=== PATIENT | male | born 1965 | race Caucasian/White ===

== ENCOUNTER 2019-11-05 00:36 | Emergency (ER) | payer SELFPAY ==
[2019-11-05 00:36] VITALS: BP 165/98; PULSE 99; RESP 16; TEMP 37.2; O2SAT 96; BMI 26.4
--- NOTE | 2019-11-05 00:38 | ED_ITS ---
Entered by Keely Shaw, acting as scribe for Tova Henry MD HPI - Seizure General: Chief Complaint: Seizure Stated Complaint: seizure Time Seen by Provider: 11/05/19 00:37 Source: EMS Mode of arrival: EMS Limitations: no limitations History of Present Illness: HPI Narrative: 64 yo m came to the er by [facility] for a seizure. Onset was today. Pt states that this is the second time that he has had a seizure today. Pt states that he fell the fisrst time and hit his head above his right eyebrow. Pt bit his lip this time when he had this last seizure. Patient denies any headache. Denies any worsening improving factors. 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) Description of Episode: other (unsure of loc) -: second(s) Witnessed: No Trauma: Yes Seizure History: Yes Place: Home Possible Precipitating Event: head injury (bit lip) Associated symptoms: Reports no associated symptoms; Deny chest pain, chills or fever(s) Review of Systems General: Reports: other (negative unless marked) Const: Denies: fever, chills, body aches or change in appetite Eyes: Denies: blurry vision or eye discomfort ENMT: Denies: throat pain or dental pain Card: Denies: chest pain Resp: Denies: shortness of breath GI: Denies: abdominal pain, nausea, vomiting or diarrhea : Denies: painful urination Musc: Denies: neck pain or back pain Skin/Breast: Denies: rash Neuro: Reports: seizure-like activity; Denies: headache Psych: Denies: depression Kenan/Lymph: Denies: easy bruising All/Imm: Denies: hives PFSH ED PFSH: Social History Smoking and tobacco status: current every day smoker Physical Exam Const: COMMON NORMALS: no apparent distress, oriented x3 and healthy appearing HENMT: COMMON NORMALS: normocephalic and head/scalp atraumatic HEAD & SCALP: normocephalic and atraumatic Eye: COMMON NORMALS: PERRL and EOMs intact bilaterally PUPIL: Yes PERRL Neck/C-Spine: COMMON NORMALS: full ROM and supple Chest: COMMONS NORMALS: inspection of chest normal and palpation of chest normal Resp: COMMON NORMALS: normal respiratory effort, no retractions, no use of accessory muscles and clear to auscultation bilaterally AUSCULTATION: clear to auscultation bilaterally Cardio: COMMON NORMALS: regular rate, regular rhythm and no murmurs RATE: regular rate RHYTHM: regular rhythm GI: COMMON NORMALS: normal to inspection, nondistended, normoactive bowel sounds, soft to palpation, non-tender and no masses PALPATION: Yes soft Extremity: COMMON NORMALS: normal to inspection and full ROM Neuro: COMMON NORMALS: oriented x3, moves all extremities and no focal motor deficits Psych: COMMON NORMALS: mental status grossly normal, thought process normal and cooperative THOUGHT PROCESS: normal thought process Skin: COMMON NORMALS: no rashes or lesions noted and no wounds GENERAL SKIN EXAM: no rashes or lesions noted Course Vital Signs: Vital signs: Vital Signs Temperature 99.0 F 11/05/19 00:36 Pulse Rate 84 11/05/19 03:30 Respiratory Rate 16 11/05/19 03:30 Blood Pressure 127/84 11/05/19 03:30 Pulse Oximetry 96 11/05/19 00:36 MDM - Seizure MDM Narrative: Medical decision making narrative: Patient presents here with seizure-like activity. Patient is a drinker and could been a withdrawal seizure. He had 2 today and will start him on Keppra. Patient feels improved I did offer him admission and he refused. Patient stable for discharge and is to follow-up with his primary care doctor and return if worsening. Lab Data: Labs: Lab Results 11/05/19 11/05/19 11/05/19 Range/Units 00:42 00:42 01:06 WBC 4.9 (4.0-10.0) 10^3/ uL RBC 3.94 L (4.1-5.3) 10^6/u L Hgb 12.6 (11.7-16.6) g/dL Hct 37.4 L (42.0-52.0) % MCV 94.9 H (80-94) fL MCH 32.0 (28.0-34.0) pg MCHC 33.7 (30.0-36.0) g/dL RDW 14.1 (12.1-15.1) % Plt Count 44 L (130-400) 10^3/c mm MPV 12.9 H (7.4-10.4) fL Neut % (Auto) 68.2 % Lymph % (Auto) 20.4 % Ida % (Auto) 8.8 % Eos % (Auto) 0.6 % Baso % (Auto) 1.2 % Neut # (Auto) 3.3 (1.8-7.7) 10^3/u L Lymph # (Auto) 1.0 (0.8-4.8) 10^3/u L Ida # (Auto) 0.4 (0.2-0.9) 10^3/u L Eos # (Auto) 0.0 (0.0-0.8) 10^3/u L Baso # (Auto) 0.1 (0.0-0.1) 10^3/u L Nucleated RBC % (a uto) 0 % Nucleated RBCs # 0.0 /100WBC Sodium 132 L (136-145) mmol/L Potassium 3.7 (3.5-5.1) mmol/L Chloride 92 L (98-107) mmol/L Carbon Dioxide 26 (22-29) mmol/L Anion Gap 17.7 (5-19) BUN 10 (8-23) mg/dL Creatinine 0.8 (0.7-1.2) mg/dL GFR Calculation 97.0 (90-130) mL/min Glucose 116 H (65-115) mg/dL POC Glucose 116 (70-110) mg/dL Calcium 9.2 (8.5-10.5) mg/dL Total Bilirubin 1.7 H (0.15-1.2) mg/dL AST 335 H (0-40) U/L ALT 146 H (0-41) U/L Alkaline Phosphata se 97 (40-130) IU/L Total Protein 8.8 H (6.6-8.7) g/dL Albumin 3.5 (3.5-5.2) g/dL Globulin 5.3 H (1.3-4.6) g/dL Ethyl Alcohol < 10 (0-10) mg/dL Imaging Data^: CT Head: Radiologist's impression: Ordering Provider/Ordering MD: Tova Henry MD Date of Service: 11/05/19 Procedure(s): CT head wo con* [id number] Accession Number(s): [id number] Report Number: [id number] PROCEDURE INFORMATION: Exam: CT Head Without Contrast Exam date and time: 11/05/2019 12:42 AM Age: 64 years old Clinical indication: Other: Seizure TECHNIQUE: Imaging protocol: Computed tomography of the head without contrast. Total DLP: 897.44 mGy-cm Radiation optimization: All CT scans at this facility use at least one of these dose optimization techniques: automated exposure control; mA and/or kV adjustment per patient size (includes targeted exams where dose is matched to clinical indication); or iterative reconstruction. COMPARISON: No relevant prior studies available. FINDINGS: Brain: No acute intracranial hemorrhage or mass effect. No definite acute infarct by CT. MRI could be more sensitive/specific for detection, as clinically directed. Ventricles: Ventricle size is normal for age. Bones/joints: No definite acute skull fracture. Sinuses: Moderate mucosal thickening in the maxillary sinuses. Included paranasal sinuses otherwise appears essentially clear. Mastoid air cells: No significant acute finding. CT/CT head wo con* [id number] IMPRESSION: 1. No acute intracranial hemorrhage or mass effect. 2. No definite acute infarct by CT, see above. 3. Other findings discussed above. EKG Data^: EKG 1: Attestation: I personally reviewed and interpreted this EKG as follows: EKG interpretation date: 11/05/19 EKG interpretation time: 00:51 Interpretation: nsr hr [address] or t wave abnormalities Discharge Plan Discharge Patient Disposition: Home, Self-Care Clinical Impression: Generalized seizure Condition: Stable Prescriptions: New Keppra 500 mg tablet 500 mg PO Q12H Qty: 60 RF: 0 Discharge Orders: Discharge Order (Routine); Ordered 11/05/19 Ordered By: Tova Henry Discharge Diet: Advance as tolerated Discharge Activity: Resume usual activity Patient Instructions: New-Onset Seizure in Adults (ED) Coding Level of Care Code ED Ore Trimmer for Chg Fwd Exam Comprehensive The documentation recorded by the Colin montes Stephanie Lyn, accurately reflects the service I personally performed and the decisions made by Elaine watson Korby, MD
--- NOTE | 2019-11-05 00:41 | ECG_ITS ---
Measurements Intervals [place] Rate: 78 P: 67 MA: 137 QRS: 43 QRSD: 105 T: 67 QT: 395 QTc: 450 SINUS RHYTHM VOLTAGE CRITERIA FOR LVH MODERATE ST DEPRESSION No previous ECG available for comparison Electronically Signed On 11-05-2019 15:27:28 [employer]EL[employer] by Aspen Cordova M.D. [email or web address]
--- NOTE | 2019-11-05 00:49 | PC.NURSE ---
Seizure precaution pads were also put in place for patient protection.
[2019-11-05 00:50] LABS: Basophils # 0.1 10^3/uL (0.0-0.1); Basophils % 1.2 %; Eosinophils % 0.6 %; Hematocrit 37.4 % (42.0-52.0); Hemoglobin 12.6 g/dL (11.7-16.6); Lymphocytes % 20.4 %; Mean Corpuscular HGB Conc 33.7 g/dL (30.0-36.0); Mean Corpuscular Volume 94.9 fL (80-94); Mean Platelet Volume 12.9 fL (7.4-10.4); Monocytes # 0.4 10^3/uL (0.2-0.9); Monocytes % 8.8 %; Neutrophils # 3.3 10^3/uL (1.8-7.7); Neutrophils % 68.2 %; Nucleated Red Blood Cells % 0 %; Platelet Count 44 10^3/cmm (130-400); Red Blood Count 3.94 10^6/uL (4.1-5.3); Red Cell Distribution Width 14.1 % (12.1-15.1); White Blood Count 4.9 10^3/uL (4.0-10.0)
--- NOTE | 2019-11-05 00:52 | PC.NURSE ---
Received patient to Er via EMS with complaint of possible seizure at home witnessed by his family. Ems states they were called to residence this am but patient refused care. They received another call this evening and patient agreed to come to ER. Patient has a bite on his tongue, but doesn't think he had a seizure. Patient states he last drank alcohol 4 days ago but denies daily drinking. Patient does admit to drinking heavy at times.
[2019-11-05 01:03] LABS: Alanine Aminotransferase 146 U/L (0-41); Albumin Level 3.5 g/dL (3.5-5.2); Alkaline Phosphatase 97 IU/L (40-130); Anion Gap 17.7 (5-19); Aspartate Amino Transferase 335 U/L (0-40); Blood Urea Nitrogen 10 mg/dL (8-23); Calcium 9.2 mg/dL (8.5-10.5); Carbon Dioxide 26 mmol/L (22-29); Chloride 92 mmol/L (98-107); Globulin 5.3 g/dL (1.3-4.6); Glucose 116 mg/dL (65-115); Potassium 3.7 mmol/L (3.5-5.1); Sodium 132 mmol/L (136-145); Total Bilirubin 1.7 mg/dL (0.15-1.2); Total Protein 8.8 g/dL (6.6-8.7)
--- NOTE | 2019-11-05 01:08 | PC.NURSE ---
Patient's blood glucose is 116, both nurse and doctor were notified.
[2019-11-05] MEDS: LORazepam 2 mg/mL INJ 1 mL IVP (01:09)
[2019-11-05] MEDS: sodium chloride 0.9% 1,000 ML 999 ML IV (01:09)
[2019-11-05 01:10] LABS: Glucose Point of Care 116 mg/dL (70-110)
[2019-11-05 01:11] LABS: Alcohol Level < 10 mg/dL (0-10)
[2019-11-05 02:11] VITALS: BP 142/86; PULSE 88; RESP 16
[2019-11-05 03:30] VITALS: BP 127/84; PULSE 84; RESP 16
[2019-11-05 04:00] VITALS: BP 136/87; PULSE 80; RESP 16; O2SAT 97
[2019-11-05 05:00] VITALS: BP 142/88; PULSE 84; RESP 18; O2SAT 96
--- NOTE | 2019-11-05 05:35 | PC.NURSE ---
Attempted to call patients friend again with no answer for a ride home.
--- NOTE | 2019-11-05 05:41 | PC.NURSE ---
Got a hold of Bubba patients friend who will come get patient.
[2019-11-05 06:41] VITALS: BP 108/82; PULSE 82; RESP 16; O2SAT 96
--- NOTE | 2019-11-05 06:55 | PC.NURSE ---
Patient dc'd home in stable condition via wheelchair. Discharge Papers given and explained to patient with all questions asked and answered.
== END 2019-11-05 06:55 | disposition home or self-care (01) ==
PROVIDERS: Emergency Provider Emergency Medicine
DX: R56.9 Unspecified convulsions (principal); F17.210 Nicotine dependence, cigarettes, uncomplicated
CPT/HCPCS: 12345; 36416; 70450; 80053; 80307; 82962; 85025; 93005; 96365; 96366; 96374; 96375; 99284; 99285; J1953; J2060; J7030

== ENCOUNTER 2019-11-16 13:01 | Outpatient (CLI) | payer SELFPAY ==
--- NOTE | 2019-11-16 | CT_ITS ---
WS: [id number] CT LUMBAR SPINE TECHNIQUE: Noncontrast CT of the lumbar spine with coronal and sagittal reformatted images. CLINICAL INFORMATION: ABNORMAL FINDINGS ON DIAGNOSTIC IMAGING COMPARISON: None. DLP: 1977.[address] scans at [facility] use at least one of these dose optimization techniques: automat ed exposure control; mA and/or kV adjustment per patient size (includes targeted exams where dose is matched to clinical indication); or iterative reconstruction. FINDINGS: Mild lumbar curve convex left. No acute compression fractures. Trace retrolisthesis L1 on L2 and L2-L 3 and L3 on L4. Anterior hypertrophic changes. Vacuum disc phenomenon L1-2. L1-L2: Slight retrolisthesis with disc osteophyte ridging and slight narrowing of the left subarticul ar recess. Narrowing of the right subarticular recess with moderate facet arthropathy. Mild right and no significant left foraminal narrowing. Mild central canal stenosis. L2-L3: Mild disc bulging with osteophytic ridging. Mild central canal stenosis. Narrowing of the suba rticular recess bilaterally. Mild right and no significant left foraminal narrowing. L3-L4: Central disc osteophyte protrusion with moderate central canal stenosis. Mild bilateral forami nal narrowing. Moderate facet arthropathy with ligamentum flavum hypertrophy. L4-L5: Mild annular bulging with slight effacement of ventral thecal sac. Moderate facet arthropathy. Right hemilaminectomy. Spinal canal and foramen are patent. L5-S1: Advanced asymmetric left facet arthropathy. Mild to moderate left and no significant right for aminal narrowing. Left facet arthropathy impinges the traversing left S1 nerve root. Visualized pelvic bony structures: Normal. Paravertebral soft tissues: Normal. CT/CT lumbar spine wo con* [id number] IMPRESSION: 1. Mild lumbar curve convex left. 2. No acute compression fractures. 3. Moderate central canal stenosis L3-4 due to disc bulging with facet arthrop athy and ligament flavum hypertrophy. 4. Asymmetric advanced left facet arthropathy L5-S1 impinges the traversing le ft S1 nerve root. Recommend correlation left S1 nerve root symptoms. 5. Mild central canal stenosis L1-L2 and L2-L3 due to disc osteophyte complexe s. 6. Chronic tiny calcified left pericentral disc protrusion L1-2 with narrowing of the left subarticular recess. 7. Mild to moderate foraminal narrowing worse at right L2-3. 8. Moderate to advanced facet arthropathy L3-L5. This is worse at left L5-S1.
--- NOTE | 2019-11-16 | CT_ITS ---
WS: [id number] CT CERVICAL SPINE TECHNIQUE: Noncontrast CT of the cervical spine with coronal and sagittal reformatted images. CLINICAL INFORMATION: ABNORMAL FINDINGS ON DIAGNOSTIC IMAGING COMPARISON: None. DLP: 1566.[address] scans at [facility] use at least one of these dose optimization techniques: automat ed exposure control; mA and/or kV adjustment per patient size (includes targeted exams where dose is matched to clinical indication); or iterative reconstruction. FINDINGS: Mild cervical curve convex left. Moderate spondylitic changes. Bony Ankylosis across the C6-7 disc sp aces. C2-C3: Mild left and no significant right foraminal narrowing. Spinal canal is patent. C3-C4: Disc osteophytic ridging. Moderate left and mild right bony foraminal narrowing. Mild facet ar thropathy. Mild central canal stenosis. Disc osteophyte complex with a right pericentral disc osteoph yte protrusion. Moderate central canal stenosis. Severe left and mild to moderate right bony foramina l narrowing. Mild facet arthropathy. C4-C5: Disc osteophyte complex with endplate ridging. Moderate central canal stenosis. Severe left an d moderate right bony foraminal narrowing. Moderate facet arthropathy. Ossification posterior longitu dinal ligament. C5-C6: Disc osteophyte complex with endplate ridging. Mild to moderate central canal stenosis. Modera te bilateral bony foraminal narrowing. Mild right and no significant left foraminal narrowing. C6-C7: Ankylosis across the C6-7 disc spaces. Disc osteophytic ridging with mild central canal stenos is. Mild to moderate bilateral bony foraminal narrowing. Mild facet arthropathy. C7-T1: Mild right and no significant left foraminal narrowing. Spinal canal is patent. Visualized posterior nasopharynx: Normal. Prevertebral soft tissues: Normal. CT/CT cervical spin wo con* [id number] IMPRESSION: 1. Mild cervical curve. Moderate spondylitic changes cervical spine. 2. Moderate central canal stenosis C4-C5 C5-C6 and C6-C7 worse at C4-C5 and C5 -C6 due to disc osteophyte complexes with central osteophyte protrusions. Ossif ication posterior longitudinal ligament C4-5. 3. Bony ankylosis across the C6-7 disc space. 4. Multilevel moderate to severe bony foraminal narrowing worse at left C4-C5, left C5-C6, and left C6-C7.
== END 2019-11-16 13:02 | disposition home or self-care (01) ==
PROVIDERS: PCP Nurse Practitioner Family; Visit Provider Nurse Practitioner Family
DX: M48.061 Spinal stenosis, lumbar region without neurogenic claudication (principal); M51.26 Other intervertebral disc displacement, lumbar region; R93.89 Abnormal findings on diagnostic imaging of other specified body structures
CPT/HCPCS: 72125; 72131

== ENCOUNTER 2022-07-02 20:10 | Emergency (ER) | payer SELFPAY ==
[2022-07-02] VITALS (13 sets, daily range): BP systolic 84–117; BP diastolic 51–70; PULSE 98–121; RESP 18–30; TEMP 36–36.3; O2SAT 97–100; BMI 23.1
--- NOTE | 2022-07-02 20:20 | XRR_ITS ---
PROCEDURE INFORMATION: Exam: XR Chest Exam date and time: 07/02/2022 8:30 PM Age: 57 years old Clinical indication: Other: Vomiting blood; Additional info: Bleeding TECHNIQUE: Imaging protocol: Radiologic exam of the chest. Views: 1 view. COMPARISON: CT cervical spin wo con* [id number] 11/16/2019 1:21 PM FINDINGS: Lungs: Calcified granulomas in both lungs. Discoid atelectasis in the medial left lung base. No consolidation. Pleural spaces: Unremarkable. No pleural effusion. No pneumothorax. Heart/Mediastinum: Unremarkable. No cardiomegaly. Diaphragm: Elevation of the right diaphragm. Bones/joints: Unremarkable. XR/XR chest 1V portable [id number] IMPRESSION: No acute findings.
--- NOTE | 2022-07-02 20:22 | W.ED.GIBLEED ---
Documented by User: Gustavo Carmen DO 07/02/22 23:01 HPI - GI Bleed General: Chief complaint: Abdominal Pain Stated complaint: vomiting blood x 3 days Time Seen by Provider: 07/02/22 20:20 Source: patient and EMS Mode of arrival: EMS Limitations: no limitations History of Present Illness: This patient presented to our emergency department with a 3-day history of bloody emesis and coffee-ground emesis. He denies any history of similar symptoms occurring previously. He denies any associated bloody stools. He states that he drinks almost on a daily basis but some days he does not drink. He denies any known history of esophageal varices, cirrhosis etc. MD complaint: blood streaked emesis and coffee ground emesis Associated symptoms: Reports vomiting; Denies chills, fever(s), headache(s), rash or syncope Review of Systems Const: Denies: fever(s) or chills Eyes: Denies: change in vision or blurry vision ENMT: Denies: throat pain, odynophagia, bleeding gums, nasal discharge or nasal congestion Card: Denies: chest pain, palpitations, irregular heart rhythm, syncope or pre-syncope Resp: Denies: dyspnea, productive cough or non-productive cough GI: Reports: vomiting and hematemesis; Denies: diarrhea, change in bowel habits, hematochezia or melena : Denies: flank pain, difficulty urinating or dysuria Musc: Denies: neck pain, back pain, extremity pain or extremity swelling Skin/Breast: Denies: rash Neuro: Denies: headache(s), numbness in extremities or weakness in extremities Psych: Denies: anxiety, visual hallucinations, auditory hallucinations or tactile hallucinations [facility] PFSH: Social History (System 11/16/19 @ 13:46 by Mariana See) Smoking and tobacco status: current every day smoker Physical Exam Narrative: EXAM NARRATIVE: Patient is alert and answers questions and asked. He appears to be somewhat uncomfortable; disheveled and dirty Const: COMMON NORMALS: average body habitus and patient oriented x3 GENERAL APPEARANCE: disheveled and appears older than stated age HENMT: COMMON NORMALS: normocephalic, atraumatic, Normal nasal mucous membranes and turbinates present, moist oral mucous membranes and oropharynx normal HEAD & SCALP: normocephalic and atraumatic NOSE: Normal nasal mucous membranes and turbinates present TEETH & GINGIVA: Yes poor dentition Eye: COMMON NORMALS: Equal, round and reactive pupils present, EOMs intact bilaterally and conjunctivae normal CONJUNCTIVA: Yes conjunctivae normal PUPIL: Yes Equal, round and reactive pupils present Neck/C-Spine: COMMON NORMALS: full ROM, supple, no JVD and No carotid bruits Chest: COMMONS NORMALS: normal inspection of the chest and normal palpation of entire chest wall Resp: COMMON NORMALS: normal respiratory effort, No retractions, No use of accessory muscles and clear to auscultation bilaterally AUSCULTATION: clear to auscultation bilaterally Cardio: COMMON NORMALS: no JVD, regular rate, regular rhythm, No murmurs present (Cardio) and Peripheral pulses 2+ throughout RATE: regular rate RHYTHM: regular rhythm PERIPHERAL PULSES: Peripheral pulses 2+ throughout GI: COMMON NORMALS: Normal to inspection, nondistended, normoactive bowel sounds present, Soft to palpation, non-tender, No hepatosplenomegaly present, no masses and no bruits PALPATION: Yes Soft to palpation and Yes No hepatosplenomegaly present : COMMON NORMALS: Yes no CVA tenderness BLADDER/KIDNEY EXAM: Yes no CVA tenderness Back/Pelvis: COMMON NORMALS: no CVA tenderness, thoracic and lumbar spine normal to inspection, no thoracic nor lumbar tenderness and thoraco-lumbar ROM normal Extremity: COMMON NORMALS: normal to inspection, full ROM, capillary refill normal, no calf tenderness and no pedal edema Neuro: COMMON NORMALS: patient oriented x3, moves all extremities, no focal motor deficits and no sensory deficits noted Psych: COMMON NORMALS: denies homicidal ideation and denies suicidal ideation APPEARANCE: Yes unkempt ATTITUDE: Yes Withdrawn affect present Skin: COMMON NORMALS: no rashes or lesions noted, turgor normal, no jaundice and no petechiae GENERAL SKIN EXAM: no rashes or lesions noted and turgor normal Course Reevaluation(s): Reevaluation #1: No more emesis since arrival to the emergency department. Protonix is infusing. Given his initial hemoglobin and his history of repetitive coffee-ground and bloody emesis we will proceed with packed red cell transfusion. Time: 21:28 Reevaluation #2: Case discussed with overnight ER physician Dr. Henry pending additional imaging and disposition based upon Dr. Love and Dr. Roque commendation. Time: 22:59 Consultations: Consultation #1: Discussed with hospitalist who requested I contact GI general surgery on-call for consult. Time: 22:05 Consultation #2: Discussed with Dr. Love who recommended additional imaging to evaluate the lower tract and/or liver etc. Vital Signs: Vital signs: Vital Signs Temperature 97.0 F L 07/02/22 23:30 Pulse Rate 100 07/02/22 23:30 Respiratory Rate 19 H 07/02/22 23:30 Blood Pressure 100/62 07/02/22 23:30 Pulse Oximetry 99 07/02/22 23:30 Oxygen Delivery Me thod 07/02/22 23:30 MDM - GI Bleed Medical Decision Making Patient was a regular almost daily user of alcohol presents with a 3-day history of bloody emesis and coffee-ground emesis. Work-up revealed a hemoglobin of 7.5 with significant transaminitis, hyperbilirubinemia etc. We have initiated blood transfusions and proton pump inhibitor treatment and we will proceed with additional imaging to evaluate his biliary tree and/or other abdominal pathology. Differential Diagnosis Likely Upper gastrointestinal hemorrhage Medical Records I reviewed the patient's medical records. Lab Data I reviewed the patient's lab results. : 07/02/22 20:08 07/02/22 20:08 Radiology Impressions Chest X-Ray 07/02/22 20:20 IMPRESSION: No acute findings. Abdomen Ultrasound 07/02/22 22:22 IMPRESSION: 1. Cirrhotic appearing liver with hepatopetal flow in the main portal vein. 2. Moderate ascites. 3. Sludge in a partially contracted gallbladder with wall thickening. This is most likely related to the patient's liver disease and is unlikely to represent cholecystitis. Laboratory Results WBC 14.9 10^3/uL (4.0-10.0) H 07/02/22 20:08 RBC 2.26 10^6/uL (4.1-5.3) L 07/02/22 20:08 Hgb 7.5 g/dL (11.7-16.6) L 07/02/22 20:08 Hct 24.7 % (42.0-52.0) L 07/02/22 20:08 MCV 109.3 fl (80-94) H 07/02/22 20:08 MCH 33.2 pg (28.0-34.0) 07/02/22 20:08 MCHC 30.4 g/dL (30.0-36.0) 07/02/22 20:08 RDW 16.4 % (12.1-15.1) H 07/02/22 20:08 Plt Count 81 10^3/cmm (130-400) L 07/02/22 20:08 MPV 13.6 fL (7.4-10.4) H 07/02/22 20:08 Neut % (Auto) 78.6 % 07/02/22 20:08 Lymph % (Auto) 8.1 % 07/02/22 20:08 Evangeline % (Auto) 10.4 % 07/02/22 20:08 Eos % (Auto) 0.1 % 07/02/22 20:08 Baso % (Auto) 0.3 % 07/02/22 20:08 Neut # (Auto) 11.75 10^3/uL (1.8-7.7) H 07/02/22 20:08 Lymph # (Auto) 1.2 10^3/uL (0.8-4.8) 07/02/22 20:08 Evangeline # (Auto) 1.6 10^3/uL (0.2-0.9) H 07/02/22 20:08 Eos # (Auto) 0.0 10^3/uL (0.0-0.8) 07/02/22 20:08 Baso # (Auto) 0.0 10^3/uL (0.0-0.1) 07/02/22 20:08 Nucleated RBC % (auto) 0.1 % 07/02/22 20:08 Nucleated RBCs # 0.0 /100WBC 07/02/22 20:08 PT 33.10 SECONDS (12.1-14.9) H 07/02/22 20:40 INR 3.21 (0.8-1.2) H 07/02/22 20:40 APTT 37.1 SECONDS (23.9-36.7) H 07/02/22 20:40 Specimen Type Arterial 07/02/22 23:27 Sample Site Radial, right 07/02/22 23:27 ABG pH 7.35 (7.35-7.45) 07/02/22 23:27 ABG pCO2 16.6 mmHg (35-45) L* 07/02/22 23:27 ABG pO2 108.0 mmHg (80.0-100.0) H 07/02/22 23:27 ABG HCO3 9.1 mmol/L (22-26) L 07/02/22 23:27 ABG Base Excess -15.0 mmol/L (-2.0-2.0) L 07/02/22 23:27 Jalil Test Pos 07/02/22 23:27 Hematocrit 21.2 % (42-52) L 07/02/22 23:27 O2 Delivery Device Room air 07/02/22 23: Manuscript Editor ID [email or web address] 07/02/22 23:27 Sodium 138 mmol/L (136-145) 07/02/22 20:08 Potassium 3.6 mmol/L (3.5-5.1) 07/02/22 20:08 Chloride 85 mmol/L (98-107) L 07/02/22 20:08 Carbon Dioxide 9 mmol/L (22-29) L 07/02/22 20:08 Anion Gap 47.6 (5-19) H 07/02/22 20:08 BUN 30 mg/dL (6-20) H 07/02/22 20:08 Creatinine 1.4 mg/dL (0.7-1.2) H 07/02/22 20:08 GFR Calculation 52.1 mL/min (90-130) L 07/02/22 20:08 Glucose 116 mg/dL (65-115) H 07/02/22 20:08 Calculated Osmolality 293 mOsm/kg (285-295) 07/02/22 20:08 Calcium 8.7 mg/dL (8.5-10.5) 07/02/22 20:08 Total Bilirubin 7.3 mg/dL (0.15-1.2) H* 07/02/22 20:08 AST 1243 U/L (0-40) H 07/02/22 20:08 ALT 350 U/L (0-41) H 07/02/22 20:08 Alkaline Phosphatase 113 U/L (40-130) 07/02/22 20:08 Total Protein 5.7 g/dL (6.6-8.7) L 07/02/22 20:08 Albumin 2.4 g/dL (3.5-5.2) L 07/02/22 20:08 Globulin 3.3 g/dL (1.3-4.6) 07/02/22 20:08 Blood Type A Positive 07/02/22 20:45 Rho(D) Type Positive 07/02/22 20:45 Antibody Screen Negative 07/02/22 20:45 Crossmatch See Detail 07/02/22 20:45 EKG Data EKG 1: I personally reviewed and interpreted this EKG as follows: Interpretation: Has a resting tachycardia 109 bpm. IL interval is normal. QRS duration is normal. QTc is normal. No acute ST-T wave changes or ischemic changes at this time. Discharge Plan Discharge Patient Disposition: Xfer Short-Term Hosp Clinical Impression: Acute upper gastrointestinal bleeding, Chronic alcohol use, Hepatic dysfunction Condition: Stable Referrals: Connie Skaggs, [employer] [Primary Care Provider] - Coding Level of Care Code ED Optical Laboratory Mechanic for Chg Fwd Exam Comprehensive Documented by User: Tova Henry MD 07/02/22 23:53 HPI - GI Bleed General: Chief complaint: Abdominal Pain Stated complaint: vomiting blood x 3 days Time Seen by Provider: 07/02/22 20:20 [facility] ED PFSH: Social History (System 11/16/19 @ 13:46 by Mariana See) Smoking and tobacco status: current every day smoker Course Vital Signs: Vital signs: Vital Signs Temperature 97.0 F L 07/02/22 23:30 Pulse Rate 100 07/02/22 23:30 Respiratory Rate 19 H 07/02/22 23:30 Blood Pressure 100/62 07/02/22 23:30 Pulse Oximetry 99 07/02/22 23:30 Oxygen Delivery Me thod 07/02/22 23:30 MDM - GI Bleed Medical Decision Making Patient was a regular almost daily user of alcohol presents with a 3-day history of bloody emesis and coffee-ground emesis. Work-up revealed a hemoglobin of 7.5 with significant transaminitis, hyperbilirubinemia etc. We have initiated blood transfusions and proton pump inhibitor treatment and we will proceed with additional imaging to evaluate his biliary tree and/or other abdominal pathology. Took patient over from Dr. Carmen patient had another bloody emesis here. Concern for likely variceal bleed we do not have GI I feel he is better served in a large tertiary facility with GI capabilities I did talk to [facility] patient excepted to their ICU there. We will transfer there by air Lab Data : 07/02/22 20:08 07/02/22 20:08 Radiology Impressions Chest X-Ray 07/02/22 20:20 IMPRESSION: No acute findings. Abdomen Ultrasound 07/02/22:22 IMPRESSION: 1. Cirrhotic appearing liver with hepatopetal flow in the main portal vein. 2. Moderate ascites. 3. Sludge in a partially contracted gallbladder with wall thickening. This is most likely related to the patient's liver disease and is unlikely to represent cholecystitis. Laboratory Results WBC 14.9 10^3/uL (4.0-10.0) H 07/02/22 20:08 RBC 2.26 10^6/uL (4.1-5.3) L 07/02/22 20:08 Hgb 7.5 g/dL (11.7-16.6) L 07/02/22 20:08 Hct 24.7 % (42.0-52.0) L 07/02/22 20:08 MCV 109.3 fl (80-94) H 07/02/22 20:08 MCH 33.2 pg (28.0-34.0) 07/02/22 20:08 MCHC 30.4 g/dL (30.0-36.0) 07/02/22 20:08 RDW 16.4 % (12.1-15.1) H 07/02/22 20:08 Plt Count 81 10^3/cmm (130-400) L 07/02/22 20:08 MPV 13.6 fL (7.4-10.4) H 07/02/22 20:08 Neut % (Auto) 78.6 % 07/02/22 20:08 Lymph % (Auto) 8.1 % 07/02/22 20:08 Evangeline % (Auto) 10.4 % 07/02/22 20:08 Eos % (Auto) 0.1 % 07/02/22 20:08 Baso % (Auto) 0.3 % 07/02/22 20:08 Neut # (Auto) 11.75 10^3/uL (1.8-7.7) H 07/02/22 20:08 Lymph # (Auto) 1.2 10^3/uL (0.8-4.8) 07/02/22 20:08 Evangeline # (Auto) 1.6 10^3/uL (0.2-0.9) H 07/02/22 20:08 Eos # (Auto) 0.0 10^3/uL (0.0-0.8) 07/02/22 20:08 Baso # (Auto) 0.0 10^3/uL (0.0-0.1) 07/02/22 20:08 Nucleated RBC % (auto) 0.1 % 07/02/22 20:08 Nucleated RBCs # 0.0 /100WBC 07/02/22 20:08 PT 33.10 SECONDS (12.1-14.9) H 07/02/22 20:40 INR 3.21 (0.8-1.2) H 07/02/22 20:40 APTT 37.1 SECONDS (23.9-36.7) H 07/02/22 20:40 Specimen Type Arterial 07/02/22 23:27 Sample Site Radial, right 07/02/22 23:27 ABG pH 7.35 (7.35-7.45) 07/02/22 23:27 ABG pCO2 16.6 mmHg (35-45) L* 07/02/22 23:27 ABG pO2 108.0 mmHg (80.0-100.0) H 07/02/22 23:27 ABG HCO3 9.1 mmol/L (22-26) L 07/02/22: ABG Base Excess -15.0 mmol/L (-2.0-2.0) L 07/02/22 23:27 Jalil Test Pos 07/02/22 23:27 Hematocrit 21.2 % (42-52) L 07/02/22 23:27 O2 Delivery Device Room air 07/02/22 23:27 Manuscript Editor ID [email or web address] 07/02/22 23:27 Sodium 138 mmol/L (136-145) 07/02/22 20:08 Potassium 3.6 mmol/L (3.5-5.1) 07/02/22 20:08 Chloride 85 mmol/L (98-107) L 07/02/22 20:08 Carbon Dioxide 9 mmol/L (22-29) L 07/02/22 20:08 Anion Gap 47.6 (5-19) H 07/02/22 20:08 BUN 30 mg/dL (6-20) H 07/02/22 20:08 Creatinine 1.4 mg/dL (0.7-1.2) H 07/02/22 20:08 GFR Calculation 52.1 mL/min (90-130) L 07/02/22 20:08 Glucose 116 mg/dL (65-115) H 07/02/22 20:08 Calculated Osmolality 293 mOsm/kg (285-295) 07/02/22 20:08 Calcium 8.7 mg/dL (8.5-10.5) 07/02/22 20:08 Total Bilirubin 7.3 mg/dL (0.15-1.2) H* 07/02/22 20:08 AST 1243 U/L (0-40) H 07/02/22 20:08 ALT 350 U/L (0-41) H 07/02/22 20:08 Alkaline Phosphatase 113 U/L (40-130) 07/02/22 20:08 Total Protein 5.7 g/dL (6.6-8.7) L 07/02/22 20:08 Albumin 2.4 g/dL (3.5-5.2) L 07/02/22 20:08 Globulin 3.3 g/dL (1.3-4.6) 07/02/22 20:08 Blood Type A Positive 07/02/22 20:45 Rho(D) Type Positive 07/02/22 20:45 Antibody Screen Negative 07/02/22 20:45 Crossmatch See Detail 07/02/22 20:45 Critical Care Time Critical Care Time: Critical Care Time: Yes Total Critical Care Time: 50 Attestation: The high probability of a clinically significant, sudden or life threatening deterioration of the patient's gi system(s) required my full and direct attention, intervention and personal management. The critical care time is as shown. This time is in addition to time spent performing any reported procedures but includes the following: [x] Data and vital sign review and interpretation [x] Patient assessment, examination and intervention [x] Documentation [x] Medication orders and management Discharge Plan Discharge Patient Disposition: Xfer Short-Term Hosp Clinical Impression: Acute upper gastrointestinal bleeding, Chronic alcohol use, Hepatic dysfunction Condition: Stable Referrals: Connie Skaggs, [employer] [Primary Care Provider] - Coding Level of Care Code ED Optical Laboratory Mechanic for Chg Fwd Exam Comprehensive
--- NOTE | 2022-07-02 20:37 | ECG_ITS ---
[facility] Test Date: 2022-07-02 Pat Name: Liban Del Cid Department: Room: Gender: Male Director Of Accreditation: : 1965 Requested By: Gustavo Carmen Order Number: [id number] Elia MD: Kathryn Mcclure M.D. Measurements Intervals Nunnelly Rate: 109 P: 57 VA: 139 QRS: 58 QRSD: 121 T: 72 QT: 373 QTc: 503 Interpretive Statements SINUS TACHYCARDIA POSSIBLE RIGHT VENTRICULAR CONDUCTION DELAY [RSR (QR) IN V1/V2] POSSIBLE LATERAL MYOCARDIAL INFARCTION , OF INDETERMINATE AGE [30 ms Q WAVE IN I/aVL/V5/V6] No previous ECG available for comparison Electronically Signed On 07-02-2022 21:48:23 CDT by Kathryn Mcclure M.D. [id number]
[2022-07-02] MEDS: pantoprazole 40 mg SDV 80 MG IVP (20:39)
[2022-07-02] MEDS: sodium chloride 0.9% 500 ML IV (20:39)
[2022-07-02 21:08] LABS: INR 3.21 (0.8-1.2); Partial Thromboplastin Time 37.1 SECONDS (23.9-36.7)
[2022-07-02 21:10] LABS: Basophils % 0.3 %; Eosinophils % 0.1 %; Hematocrit 24.7 % (42.0-52.0); Hemoglobin 7.5 g/dL (11.7-16.6); Lymphocytes # 1.2 10^3/uL (0.8-4.8); Lymphocytes % 8.1 %; Mean Corpuscular HGB Conc 30.4 g/dL (30.0-36.0); Mean Corpuscular Hemoglobin 33.2 pg (28.0-34.0); Mean Corpuscular Volume 109.3 fl (80-94); Mean Platelet Volume 13.6 fL (7.4-10.4); Monocytes # 1.6 10^3/uL (0.2-0.9); Monocytes % 10.4 %; Neutrophils # 11.75 10^3/uL (1.8-7.7); Neutrophils % 78.6 %; Nucleated Red Blood Cells % 0.1 %; Platelet Count 81 10^3/cmm (130-400); Red Blood Count 2.26 10^6/uL (4.1-5.3); Red Cell Distribution Width 16.4 % (12.1-15.1); White Blood Count 14.9 10^3/uL (4.0-10.0)
[2022-07-02 21:11] LABS: Alanine Aminotransferase 350 U/L (0-41); Albumin Level 2.4 g/dL (3.5-5.2); Alkaline Phosphatase 113 U/L (40-130); Blood Urea Nitrogen 30 mg/dL (6-20); Calcium 8.7 mg/dL (8.5-10.5); Globulin 3.3 g/dL (1.3-4.6); Glomerular Filtration Rate 52.1 mL/min (90-130); Glucose 116 mg/dL (65-115); Potassium 3.6 mmol/L (3.5-5.1); Total Protein 5.7 g/dL (6.6-8.7)
[2022-07-02 21:39] LABS: Chloride 85 mmol/L (98-107)
[2022-07-02 21:55] LABS: Anion Gap 47.6 (5-19); Aspartate Amino Transferase 1243 U/L (0-40); Osmolality Calculated 293 mOsm/kg (285-295); Sodium 138 mmol/L (136-145)
[2022-07-02 21:57] LABS: Carbon Dioxide 9 mmol/L (22-29); Total Bilirubin 7.3 mg/dL (0.15-1.2)
--- NOTE | 2022-07-02 22:02 | CTR_ITS ---
PROCEDURE INFORMATION: Exam: CT Abdomen And Pelvis With Contrast Exam date and time: 07/02/2022 11:49 PM Age: 57 years old Clinical indication: Other: Gi bleed; Patient HX: Hematemesis x 3 days. Decreased h&h history of liver dysfunction and ascites. ; Additional info: Gi bleeding with liver dysfunction TECHNIQUE: Imaging protocol: Computed tomography of the abdomen and pelvis with contrast. Radiation optimization: All CT scans at this facility use at least one of these dose optimization techniques: automated exposure control; mA and/or kV adjustment per patient size (includes targeted exams where dose is matched to clinical indication); or iterative reconstruction. Contrast material: OMNI 350; Contrast volume: 100 ml; Contrast route: INTRAVENOUS (IV); Other contrast: Oral, 25 ML OF OMNI 350 MIXED WITH DISTILLED WATER, 450 ML; COMPARISON: abdomen limited [id number] 07/02/2022 10:44 PM RADIATION DOSE METRICS: Total DLP (mGy-cm): 899.53 FINDINGS: Mediastinal space: Hiatal hernia with patulous distal esophagus. Liver: Inhomogenous severely cirrhotic and small liver. No focal suspicious nodule. Gallbladder and bile ducts: Sludge in the gallbladder. Gallbladder is partially contracted. No wall thickening. The bile ducts are normal. Pancreas: Normal. No ductal dilation. Spleen: Normal. No splenomegaly. Adrenal glands: Normal. No mass. Kidneys and ureters: Left renal cyst, Hounsfield units less than 20. No imaging follow-up recommended. The kidneys are otherwise unremarkable. No hydronephrosis. Stomach and bowel: Contrast filled stomach is unremarkable. There is wall thickening within multiple loops proximal small bowel in the left abdomen. No obstruction. The colon is unremarkable and partially decompressed. Scattered gas to the rectum. Appendix: The appendix is not visualized. No secondary signs of appendicitis. Intraperitoneal space: Severe ascites. No free peritoneal gas. Vasculature: Portal venous hypertension with recanalized umbilical vein and gastroesophageal varices. Arterial calcifications. No aneurysm. Lymph nodes: Unremarkable. No enlarged lymph nodes. Urinary bladder: Unremarkable as visualized. Reproductive: Unremarkable as visualized. Bones/joints: Degenerative changes of the spine. No fracture. Soft tissues: Mild body wall edema. CT/CT abdomen pelvis w con* [id number] IMPRESSION: 1. Severe liver cirrhosis. 2. Portal venous hypertension with gastroesophageal varices. 3. Severe ascites. 4. Wall thickening within the proximal small bowel may relate to the patient's liver disease. Infectious or inflammatory enteritis is not excluded. No obstruction. COMMENTS: Consistent with the [place] [employer]'s Incidental Findings Committee white paper (J Am Pauly Radiol 2018): Any incidental renal lesion less than 1 cm or classified as too small to characterize, or any incidental cystic renal lesion characterized as simple-appearing, is likely benign. No follow-up imaging is recommended for these lesions per consensus recommendations based on imaging criteria.
--- NOTE | 2022-07-02 22:22 | USR_ITS ---
PROCEDURE INFORMATION: Exam: US Abdomen, Limited; Right Upper Quadrant Exam date and time: 07/02/2022 10:44 PM Age: 57 years old Clinical indication: Patient HX: Hematemesis x 3 days. Elevated tbili = 7.3; Elevated ast = 1243, elevated alt = 35, normal alkphos = 113, low albumin, low total protein. No history of abdominal surgery per patient. ; Additional info: Liver abn-evaluate liver+biliary tree TECHNIQUE: Imaging protocol: Real time ultrasound of the abdomen with image documentation. Limited exam focused on the right upper quadrant. COMPARISON: CT lumbar spine wo con* [id number] 11/16/2019 1:25 PM FINDINGS: Liver: Cirrhotic appearing liver with a nodular contour, measuring 19.0 cm in length. Gallbladder: The gallbladder is partially contracted with sludge. The wall thickness measures up to 8.2 mm. No visible stones. Biliary ducts: Normal. No stones. No dilation. Pancreas: Visualized pancreas is unremarkable. Right kidney: Normal. No mass. No hydronephrosis. Aorta: The mid abdominal aorta is upper normal in diameter measuring 2.95 cm. Portal venous: Hepatopetal flow in the main portal vein. Intraperitoneal space: Moderate ascites. US/US abdomen limited [id number] IMPRESSION: 1. Cirrhotic appearing liver with hepatopetal flow in the main portal vein. 2. Moderate ascites. 3. Sludge in a partially contracted gallbladder with wall thickening. This is most likely related to the patient's liver disease and is unlikely to represent cholecystitis.
[2022-07-02] MEDS: sodium chloride 0.9% (100 ml) 100 ML (23:05)
[2022-07-02 23:40] LABS: ABG PH Result 7.35 (7.35-7.45); Arterial Blood Gas Hematocrit 21.2 % (42-52); Blood Gas Allen Test Pos; Blood Gas Sample Site Radial, right; Blood Gas Sample Type Arterial; HCO3 ABG 9.1 mmol/L (22-26); Oxygen Device ROOM AIR
[2022-07-02 23:42] LABS: ABG PCO2 16.6 mmHg (35-45)
[2022-07-02] MEDS: octreotide 100 mcg/mL SDV 50 MCG IVP (23:49)
[2022-07-03] VITALS: BP 138/59; PULSE 103; RESP 23; O2SAT 100
[2022-07-03] MEDS: iohexol 350 mg/mL 500 mL Btl (per mL) IV (00:01)
[2022-07-03] MEDS: iohexol 300 mg/mL 50 mL Btl PO (00:03)
[2022-07-03 00:12] LABS: Lactate (Lactic Acid level) 28.6 mmol/L (0.5-2.2)
[2022-07-03 00:13] VITALS: BP 138/59; PULSE 97; RESP 22; TEMP 36.3; O2SAT 99
[2022-07-03 00:16] VITALS: BP 131/67; PULSE 98; RESP 15; TEMP 36.4; O2SAT 98
[2022-07-03 00:25] VITALS: BP 131/67; PULSE 100; RESP 19; O2SAT 100
[2022-07-03 00:29] VITALS: BP 133/75; PULSE 99; RESP 25; TEMP 36.3; O2SAT 100
--- NOTE | 2022-07-03 00:36 | PC.NURSE ---
Late Note: patient vomited a large amount, approx 400-500cc of dark, coffee ground emesis; Dr. Henry notified.
[2022-07-03 00:38] VITALS: BP 140/74; PULSE 98; RESP 21; TEMP 36.3; O2SAT 100
[2022-07-03] MEDS: sodium chloride 0.9% 1,000 ML 999 ML IV (00:40)
--- NOTE | 2022-07-03 01:02 | PC.NURSE ---
report given to [employer] and care turned over; assisted flight time to helicopter; patient belongings including clothing and shoes sent with patient.
== END 2022-07-03 01:08 | disposition short-term general hospital (02) ==
PROVIDERS: Emergency Medicine; Emergency Provider Emergency Medicine; PCP Nurse Practitioner Family
DX: K92.2 Gastrointestinal hemorrhage, unspecified (principal); F10.90 Alcohol use, unspecified, uncomplicated; K76.89 Other specified diseases of liver; F17.210 Nicotine dependence, cigarettes, uncomplicated
CPT/HCPCS: 36430; 36600; 71045; 74177; 76705; 80053; 82803; 83605; 85025; 85610; 85730; 86850; 86900; 86920; 93005; 96361; 96374; 96375; 99285; C9113; J2354; J7030; J7040; P9016; Q9967